=== PATIENT | male | born 1975 | race Two or more races ===

== ENCOUNTER 2023-04-09 00:52 | Emergency (ER) | payer MEDICAID ==
[~2023-04-09] VITALS: Ht 162.6 cm; Wt 64.5 kg
[2023-04-09 00:59] VITALS: TEMP 98.6
[2023-04-09] MEDS ORDERED: AMOX875T2 PO (01:05)
[2023-04-09] MEDS ORDERED: IBUP-2070 PO (01:05)
[2023-04-09] MEDS ORDERED: CEPH-558 PO ×2 (01:27→01:52)
[2023-04-09] MEDS ORDERED: BACTDSB PO ×2 (01:27→01:52)
[2023-04-09] MEDS ORDERED: IBUPROFEN 600 MG TABLET PO ONE (01:30)
[2023-04-09] MEDS ORDERED: CEPHALEXIN MONOHYDRATE 500 MG CAPSULE PO ONE (01:30)
[2023-04-09] MEDS ORDERED: SULFAMETHOX/TRIMETH DS 800-160 MG/TABLET PO ONE (01:30)
[2023-04-09 02:03] VITALS: BP 122/81; PULSE 78; RESP 18
== END 2023-04-09 02:05 | disposition home or self-care (01) ==
LOC: EMS 00:54
DX: L02.511 Cutaneous abscess of right hand (principal)
CPT/HCPCS: 26010; 99284; Z7502; Z7610

== ENCOUNTER 2023-05-29 14:34 | Emergency (ER) | payer MEDICAID, OTHER ==
[~2023-05-29] VITALS: Ht 167.6 cm; Wt 75.0 kg
[~2023-05-29 14:34] MED LIST: AMOX875T2 PO; BACTDSB PO; CEPH-558 PO; IBUP-2070 PO
[2023-05-29 14:37] VITALS: BP 149/75; PULSE 102; RESP 18; TEMP 98.8
[2023-05-29] MEDS ORDERED: CEPH-558 PO (16:07)
[2023-05-29] MEDS ORDERED: DOXY-354 PO (16:07)
[2023-05-29] MEDS ORDERED: IBUP-1554 PO (16:07)
== END 2023-05-29 16:11 | disposition home or self-care (01) ==
LOC: EMS 14:34
DX: L02.215 Cutaneous abscess of perineum (principal)
CPT/HCPCS: 99283; Z7502

== ENCOUNTER 2023-09-28 02:19 | Emergency (ER) | payer OTHER ==
[~2023-09-28] VITALS: Ht 162.6 cm; Wt 67.3 kg
[~2023-09-28 02:19] MED LIST changes: -AMOX875T2 PO; -BACTDSB PO; +DOXY-354 PO; +IBUP-1554 PO; -IBUP-2070 PO
[2023-09-28 02:33] VITALS: BP 151/98; PULSE 70; RESP 16; TEMP 97.9
[2023-09-28] MEDS ORDERED: CEPH-558 PO (04:00)
[2023-09-28] MEDS ORDERED: HYDR-4062 PO (04:00)
[2023-09-28] MEDS: HYDROCODONE/ACETAMINOPHEN 5-325 MG TABLET PO ONE (04:21)
== END 2023-09-28 04:26 | disposition home or self-care (01) ==
LOC: EMS 02:19
DX: J34.0 Abscess, furuncle and carbuncle of nose (principal); F15.90 Other stimulant use, unspecified, uncomplicated
CPT/HCPCS: 99283